=== PATIENT | male | born 1960 | race Caucasian/White ===

== ENCOUNTER 2016-03-24 21:21 | Emergency (ER) | payer OTHER ==
[~2016-03-24 21:21] MED LIST: Iopamidol 370 76% 100 ML VIAL ONE
[2016-03-24] MEDS ORDERED: Sodium Chloride 0.9% 1,000 ML ONE (21:31)
[2016-03-24 22:09] LABS: ALT (SGPT) 47 U/L (0-55); AST (SGOT) 78 U/L (5-34); Alkaline Phosphatase 58 U/L (40-150); Anion Gap 19 mmol/L (10-20); BUN (Urea Nitrogen) 6 mg/dL (8.4-25.7); Bilirubin, Total 0.3 mg/dL (0.2-1.2); Calc. Creatinine Clearance 0 mL/min (70-130); Calcium 8.5 mg/dL (7.8-10.44); Carbon Dioxide 19 mmol/L (22-29); Chloride 102 mmol/L (98-107); Estimated GFR-MDRD 81; Globulin 2.8 g/dL (2.4-3.5); Protein, Total 6.7 g/dL (6.0-8.3)
[2016-03-24 22:15] LABS: #Basophils 0.1 thou/uL (0.0-0.2); #Eosinphils 0.2 thou/uL (0.0-0.7); #Lymphocytes 1.2 thou/uL (1.20-3.40); #Monocytes 0.7 thou/uL (0.11-0.59); #Neutrophils 6.8 thou/uL (1.40-6.50); %Basophils 0.9 % (0.0-1.0); %Eosinophils 2.6 % (0.0-10.0); %Lymphocytes 13.6 % (21.0-51.0); %Monocytes 7.5 % (0.0-10.0); Hematocrit 43.2 % (42.0-52.0); Macrocytosis SLIGHT = 6-15 cells (100X) (0-5/hpf); Mean Platelet Volume 7.6 fL (7.4-10.4); Red Blood Cell (RBC) Count 4.03 mill/uL (4.70-6.10)
[2016-03-24] MEDS ORDERED: Lidocaine 1% w/Epinephrine 1:100K 20 ML VIAL ONE (22:58)
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
[2016-03-24] MEDS ORDERED: Bacitracin Zinc 1 Packet ONE (23:33)
--- NOTE | 2016-03-24 23:35 | CT ---
CT CERVICAL SPINE: Date: 03-24-16 Comparison: None History: Fall, pain. Technique: Serial axial CT imaging at 2.5 mm intervals from the skull base through the lung apices without contrast. Coronal and sagittal reformatted imaging obtained. FINDINGS: The C1 ring is intact. The craniocervical junction and atlantoaxial interspace demonstrate no acute findings. The cervicothoracic junction appears intact as well. No significant anterolisthesis or retrolisthesis seen. There are degenerative change at the atlanto axial interspace. There is left sided facet hypertroph y and C7-T1. There is right side facet hypertrophy at multiple levels, most prominent at C7-T1. T here is an old fracture of the C6 spinus process. No prevertebral soft tissue swelling. Occipital condyles, dens, and C1-2 articulation appear normal. No displaced fracture or evidence of disc location is seen. IMPRESSION: Cervical spine degenerative change. No acute fracture or dislocation noted. POS: [facility]
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
--- NOTE | 2016-03-25 00:42 | PICIS ---
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 dislocation. No radiopaque foreign body. IMPRESSION: Prominent soft tissue injury involving the medial base of the hand and the soft tissues medial to th e wrist. No displaced fracture or dislocation is seen. Bandaging material in this region slightly limits detailed assessment. POS: [facility] . (FriMar 25, 2016 00:15 JROB) LABORATORY: Alcohol Collection DT: Mahomet Mar 24, 2016 21:53, Alcohol 288 mg/dL, Range (Less than 10), The pharmacological response to blood alcohol levels may vary from, individual to individual. Negative: Less than 10, mg/dL Toxic: 50 - 100 mg/dL , Depression of SOFTWARE RECRUITER: Greater than 100 mg/dL , Fatalities reported: Greater than 400 mg/dL . (22:12 JROB) Comprehensive Metabolic Panel Collection DT: Mahomet Mar 24, 2016 21:53, Sodium 136 mmol/L, Range (136-145), Potassium 3.9 mmol/L, Range (3.5-5.1), Chloride 102 mmol/L, Range (98-107), *Carbon Dioxide 19 - L mmol/L, Range (22-29), Anion Gap 19 mmol/L, Range (10-20), *BUN (Urea Nitrogen) 6 - L mg/dL, Range (8.4-25.7), Creatinine 0.96 mg/dL, Range (0.7-1.3), Estimated GFR-MDRD 81 , Reference Range for Estimated GFR: Greater than 90, mL/min/1.73 m2 &a-1R&a+25V*p+0X*n5742C*c202B*c15G*c2P*p-0X&a-25V&a+1R Name: Karely Beckford : 1960 M56 MedRec: [id number] AcctNum: [id number] Prepared: FriMar 25, 2016 00:44 by Interface Page 11 of 12 pMD [facility] EMERGENCY RECORD NOTE: The MDRD equation has not been validated for use, with the elderly (over 70 years of age), women, patients with, serious comorbid condition or persons with extremes of body size, muscle, mass, or nutritional status. , *Glucose 141 - H mg/dL, Range (70-105), Calcium 8.5 mg/dL, Range (7.8-10.44), Bilirubin, Total 0.3 mg/dL, Range (0.2-1.2), Protein, Total 6.7 g/dL, Range (6.0-8.3), NOTE: Plasma values are generally 0.3 to 0.5 g/dL higher than serum values, due to the presence of fibrinogen. , Albumin 3.9 g/dL, Range (3.5-5.0), Globulin 2.8 g/dL, Range (2.4-3.5), Alb/Glob Ratio 1.4 g/dL, Range (1.2-2.2), Alkaline Phosphatase 58 U/L, Range (40-150), *AST (SGOT) 78 - H U/L, Range (5-34), ALT (SGPT) 47 U/L, Range (0-55). (22:12 JROB) CBC with Differential Collection DT: Amanda Mar 24, 2016 21:53, White Blood Cell (WBC) Count 9.0 thou/uL, Range (4.8-10.8), *Red Blood Cell (RBC) Count 4.03 - L mill/uL, Range (4.70-6.10), Hemoglobin 14.4 g/dL, Range (14.0-18.0), Hematocrit 43.2 %, Range (42.0-52.0), *Mean Corpuscular Volume 107.0 - H fl, Range (80.0-94.0), *Mean Corpuscular Hemoglobin 35.7 - H pg, Range (27.0-31.0), Mean Corpuscular HGB CONC 33.3 g/dL, Range (32.0-36.0), *RBC Distribution Width 11.4 - L %, Range (11.5-14.5), Platelet Count 166 thou/uL, Range (130-400), Mean Platelet Volume 7.6 fL, Range (7.4-10.4), *%Neutrophils 75.4 - H %, Range (42.0-75.0), *%Lymphocytes 13.6 - L %, Range (21.0-51.0), %Monocytes 7.5 %, Range (0.0-10.0), %Eosinophils 2.6 %, Range (0.0-10.0), %Basophils 0.9 %, Range (0.0-1.0), *#Neutrophils 6.8 - H thou/uL, Range (1.40-6.50), #Lymphocytes 1.2 thou/uL, Range (1.20-3.40), *#Monocytes 0.7 - H thou/uL, Range (0.11-0.59), #Eosinphils 0.2 thou/uL, Range (0.0-0.7), #Basophils 0.1 thou/uL, Range (0.0-0.2), Macrocytosis SLIGHT = 6-15 cells (100X), Range (0-5/hpf), PLT Morphology Comment Appears Adequate . (22:27 JROB) Leong: LUANN=NANNETTE Guaman, Nivia JROB=MD Lion, Reese ALBRIGHT=NANNETTE Patel, Maryjo &a-1R&a+25V*p+0X*f6118E*c202B*c15G*c2P*p-0X&a-25V&a+1R Name: Karely Beckford : 1960 M56 MedRec: [id number] AcctNum: [id number] Prepared: FriMar 25, 2016 00:44 by Interface Page 12 of 12 pMJeff MCCARTNEY
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
== END 2016-03-25 00:22 | disposition home or self-care (01) ==
LOC: NAV ERS 21:21
DX: S22.41XA Multiple fractures of ribs, right side, initial encounter for closed fracture (principal); S61.411A Laceration without foreign body of right hand, initial encounter; F10.129 Alcohol abuse with intoxication, unspecified; F31.9 Bipolar disorder, unspecified; F17.210 Nicotine dependence, cigarettes, uncomplicated; Z89.611 Acquired absence of right leg above knee; Z79.899 Other long term (current) drug therapy; W22.8XXA Striking against or struck by other objects, initial encounter
CPT/HCPCS: 12004; 70450; 71260; 72125; 74177; 80053; 80307; 85025; 96360; 96361; G0479; J2001; J7050

== ENCOUNTER 2016-04-02 13:29 | Emergency (ER) | payer OTHER ==
--- NOTE | 2016-04-02 14:45 | ERRECORD ---
[facility] EMERGENCY RECORD HPI WOUND CHECK (14:11 MPUR) CHIEF COMPLAINT: Patient presents for evaluation of hand wound, laceration, closed with sutures, Wound is 10 days old. HISTORIAN: History provided by patient, fell New Years osorio, broke ribs, lac rt hand. smokes 1/2 PPD. here for suture removal. Needs some more pain meds. LOCATION: Symptoms are localized, most severe to rt ribs. TIME COURSE: Symptoms are improving, minimally. ASSOCIATED WITH: No associated symptoms. EXACERBATED BY: Patient's condition exacerbated by nothing. RELIEVED BY: Patient's condition relieved by nothing. ROS (14:13 MPUR) CONSTITUTIONAL: Historian denies fever. EYES: Historian denies eye pain. ENT: Historian denies rhinorrhea. CARDIOVASCULAR: Chest wall pain. RESPIRATORY: cough with chest wall pain. GI: Historian denies diarrhea, Historian denies vomiting. GENITOURINARY MALE: Historian denies dysuria. MUSCULOSKELETAL: Historian denies arthralgias. SKIN: Historian denies rash. See HPI. NEUROLOGIC: Historian denies seizures. ENDOCRINE: Historian denies skin changes. HEMO/LYMPHATIC: Historian denies easy bruising. PAST MEDICAL HISTORY (14:04 JPAR) MEDICAL HISTORY: Flu vaccine not up to date, Tetanus immunization up to date, Date of immunization: 2015, No past medical history of diabetes, Past medical history includes gastrointestinal disease, Hepatitis C, No past medical history of hyperlipidemia, No past medical history of hypertension, Past medical history includes skin history, psoriasis. MALE SURGICAL HISTORY: Surgical history of amputation to, right lower extremity, Notes: Half of 2-4 digits, Surgical history of hernia repair, Date of surgery 2013. PSYCHIATRIC HISTORY: Psychiatric history includes, anxiety, bipolar disorder, depression. SOCIAL HISTORY: Patient drinks every day, less than 5 drinks per day, Patient is a former drug user, abused marijuana, Patient currently uses tobacco, smokes cigarettes, daily, Patient has smoked for 30 years, Patient smokes 1 pack per day, Lives at home, alone, Patient has pets. KNOWN ALLERGIES Penicillins: Source: Parent CURRENT MEDICATIONS (14:01 JPAR) &a-1R&a+25V*p+0X*f9366M*c202B*c15G*c2P*p-0X&a-25V&a+1R Name: Karely Beckford : 1960 M56 MedRec: [id number] AcctNum: [id number] Prepared: FriApr 03, 2016 01:14 by Interface Page 1 of 3 pMD [facility] EMERGENCY RECORD Valium: TABLET : Strength - 2 mg : ORAL Patient Dose: unknown Oral 2 times a day. acetaminophen-codeine: TABLET : Strength - 300 mg-30 mg : ORAL Patient Dose: 1 tab(s) Oral every 6 hours PRN. VITAL SIGNS (13:56 JPAR) VITAL SIGNS: BP: 122/86, Pulse: 108, Resp: 16, Temp: 98.7 (Oral), Pain: 6, O2 sat: 98 on Room Air, Time: 04/02/2016 13:56. PHYSICAL EXAM CONSTITUTIONAL: Vital signs reviewed, Patient appears non toxic. (14:13 MPUR) HEAD: Head exam included findings of head atraumatic, normocephalic. (14:13 MPUR) EYES: Eye exam included findings of eyelids normal to inspection, Conjunctiva normal, Sclera normal. (14:13 MPUR) ENT: Nose exam normal, no nasal deformity, mucous membranes moist. (14:13 MPUR) NECK: Neck exam included findings of normal range of motion, no ecchymosis. (14:13 MPUR) RESPIRATORY CHEST: Breath sounds clear, Respiratory exam included findings of no respiratory distress, NL Respiratory rate and no increased work of breathing. (14:13 MPUR) UPPER EXTREMITY: healing laceration on rt wrist. sutures removed. (14:15 MPUR) LOWER EXTREMITY: Lower extremity exam included findings of inspection normal, no cyanosis. (14:13 MPUR) NEURO: Speech normal, alert. (14:13 MPUR) SKIN: dry, and normal in color, no rash. (14:13 MPUR) PSYCHIATRIC: Normal affect, Recent memory normal. (14:13 MPUR) DOCTOR NOTES (14:13 MPUR) TEXT: I have reviewed and agree with nurse's past medical, family, and social history as documented on chart. Pt's vital signs have been reviewed. PROBLEM LIST No recorded problems DIAGNOSIS (14:16 MPUR) FINAL: PRIMARY: ENCOUNTER FOR REMOVAL OF SUTURES, ADDITIONAL: med refill. PRESCRIPTION (14:17 MPUR) acetaminophen-codeine: TABLET : 300 mg-30 mg : ORAL : Quantity: 1 Unit: tab(s) Route: ORAL Schedule: every 12 hours Dispense: 14 Unit: tab(s) &a-1R&a+25V*p+0X*l1630W*c202B*c15G*c2P*p-0X&a-25V&a+1R Name: Karely Beckford : 1960 M56 MedRec: [id number] AcctNum: [id number] Prepared: FriApr 03, 2016 01:14 by Interface Page 2 of 3 pMD [facility] EMERGENCY RECORD May substitute. Refills: No Refills . NOTES: as needed for pain. No Refills. DISPOSITION PATIENT: Disposition Type: Discharge, Disposition: *Discharge Home. (14:16 ELLIOTT) Patient left the department. (14:41 NATI) Leong: NATI=NANNETTE Vallejo, Yayo MPUR=MD Vickie, Ronald &a-1R&a+25V*p+0X*f7506O*c202B*c15G*c2P*p-0X&a-25V&a+1R Name: Karely Beckford : 1960 M56 MedRec: [id number] AcctNum: [id number] Prepared: FriApr 03, 2016 01:14 by Interface Page 3 of 3 pMD MTDD
--- NOTE | 2016-04-02 14:51 | PICIS ---
[facility] EMERGENCY RECORD TRIAGE (14:00 JPAR) TRIAGE NOTES: SUTURE REMOVAL r HAND. (14:00 JPAR) PATIENT: NAME: Karely Beckford, AGE: 56, GENDER: male, : Fri1960, TIME OF GREET: FriApr 02, 2016 13:29, PREFERRED LANGUAGE: Polish, ETHNICITY: Not or , ECODE BILLING MAP: [facility], SSN: [id number], Zip Code: [address], KG WEIGHT: 83.91, PHONE: , , , PERSON ID: [id number], PCP: [facility]. (14:00 JPAR) COMPLAINT: RIGHT HAND SUTURE REMOVAL,RIGHT SIDE PAIN. (14:00 JPAR) ADMISSION: URGENCY: 4 Non Urgent, ADMISSION SOURCE: Home, TRANSPORT: CAR, BED: TRIAGE. (14:00 JPAR) ASSESSMENT: Assessment: SUTURE REMOVAL r SIDE PAIN POST NEW YEARS OSORIO, Symptoms began 9 DAYS, Symptoms began greater than 1 week ago. (14:04 JPAR) SIRS SCORING: Heart Rate 110-139 (2), Temp range 96.8-101.1 (0), respiratory rate 12-24 (0), Mental Status altered: no (0), Infection or Suspected Infection: No. (14:04 JPAR) TRIAGE SCREENING: Patient denies suicidal ideation, Patient denies presence of domestic violence. (14:04 JPAR) PROVIDERS: TRIAGE NURSE: Yayo Vallejo RN. (14:00 JPAR) VITAL SIGNS: BP 122/86, Pulse 108, Resp 16, Temp 98.7, (Oral), Pain 6, O2 Sat 98, on Room Air, Time 04/02/2016 13:56. (13:56 JPAR) PREVIOUS VISIT ALLERGIES: Penicillins. (14:00 JPAR) Penicillins. (14:04 JPAR) KNOWN ALLERGIES Penicillins: Source: Parent CURRENT MEDICATIONS (14:01 JPAR) Valium: TABLET : Strength - 2 mg : ORAL Patient Dose: unknown Oral 2 times a day. acetaminophen-codeine: TABLET : Strength - 300 mg-30 mg : ORAL Patient Dose: 1 tab(s) Oral every 6 hours PRN. VITAL SIGNS (13:56 JPAR) VITAL SIGNS: BP: 122/86, Pulse: 108, Resp: 16, Temp: 98.7 (Oral), Pain: 6, O2 sat: 98 on Room Air, Time: 04/02/2016 13:56. NURSING ASSESSMENT: SKIN (14:00 JPAR) CONSTITUTIONAL: Patient arrives ambulatory, Gait steady, History obtained from patient, Patient appears comfortable, Patient cooperative, Patient alert, Oriented to person, place and time, Skin warm, Skin dry, Skin normal in color, Mucous membranes pink, Mucous membranes moist, Patient complains of Suture removal Right hand. PAIN: aching pain. SKIN: Skin assessment findings include skin warm, Skin dry, Skin &a-1R&a+25V*p+0X*l0662O*c202B*c15G*c2P*p-0X&a-25V&a+1R Name: Karely Beckford : 1960 M56 MedRec: [id number] AcctNum: [id number] Prepared: FriApr 03, 2016 01:20 by Interface Page 1 of 4 pMD [facility] EMERGENCY RECORD normal in color, Inspection findings include laceration, to R hand, [address] SAFETY: Side rails up, Cart/Stretcher in lowest position, Family at bedside, Call light within reach, Hospital ID band on. NURSING PROCEDURE: DISCHARGE NOTE (14:27 EPIE) DISCHARGE: Patient discharged to home, ambulating without assistance, friend driving, accompanied by friend, Summary of Care printed/ provided, Discharge instructions given to patient, Simple or moderate discharge teaching performed, by YAYO BRUNSON, Prescriptions given and instructions on side effects given, Name of prescription(s) given: TYLENOL-CODEINE, Above person(s) verbalized understanding of discharge instructions and follow-up care. BELONGINGS: Belongings and valuables with patient upon arrival to the Emergency Department include:, Belongings and valuables with patient at time of discharge include:, Belongings remain with patient, Valuables remain with patient. NURSING PROCEDURE: SUTURE/STAPLE REMOVAL (14:25 JPAR) PATIENT IDENTIFIER: Patient actively involved in identification process, Patient's identity verified by patient stating name, Patient's identity verified by patient stating date, Patient's identity verified by hospital ID miller, Patient's identity verified by family member. SUTURE/STAPLE REMOVAL: Suture or staple removal indicated for healed wound, Sutures removed. FOLLOW-UP: Suture(s) removed without difficulty. SAFETY: Side rails up, Cart/Stretcher in lowest position, Family at bedside, Call light within reach, Hospital ID band on. HPI WOUND CHECK (14:11 MPUR) CHIEF COMPLAINT: Patient presents for evaluation of hand wound, laceration, closed with sutures, Wound is 10 days old. HISTORIAN: History provided by patient, fell New Years osorio, broke ribs, lac rt hand. smokes 1/2 PPD. here for suture removal. Needs some more pain meds. LOCATION: Symptoms are localized, most severe to rt ribs. TIME COURSE: Symptoms are improving, minimally. ASSOCIATED WITH: No associated symptoms. EXACERBATED BY: Patient's condition exacerbated by nothing. RELIEVED BY: Patient's condition relieved by nothing. ROS (14:13 MPUR) CONSTITUTIONAL: Historian denies fever. EYES: Historian denies eye pain. ENT: Historian denies rhinorrhea. CARDIOVASCULAR: Chest wall pain. RESPIRATORY: cough with chest wall pain. GI: Historian denies diarrhea, Historian denies &a-1R&a+25V*p+0X*r5045K*c202B*c15G*c2P*p-0X&a-25V&a+1R Name: Karely Beckford : 1960 M56 MedRec: [id number] AcctNum: [id number] Prepared: FriApr 03, 2016 01:20 by Interface Page 2 of 4 pMD [facility] EMERGENCY RECORD vomiting. GENITOURINARY MALE: Historian denies dysuria. MUSCULOSKELETAL: Historian denies arthralgias. SKIN: Historian denies rash. See HPI. NEUROLOGIC: Historian denies seizures. ENDOCRINE: Historian denies skin changes. HEMO/LYMPHATIC: Historian denies easy bruising. PAST MEDICAL HISTORY (14:04 JPAR) MEDICAL HISTORY: Flu vaccine not up to date, Tetanus immunization up to date, Date of immunization: 2015, No past medical history of diabetes, Past medical history includes gastrointestinal disease, Hepatitis C, No past medical history of hyperlipidemia, No past medical history of hypertension, Past medical history includes skin history, psoriasis. MALE SURGICAL HISTORY: Surgical history of amputation to, right lower extremity, Notes: Half of 2-4 digits, Surgical history of hernia repair, Date of surgery 2013. PSYCHIATRIC HISTORY: Psychiatric history includes, anxiety, bipolar disorder, depression. SOCIAL HISTORY: Patient drinks every day, less than 5 drinks per day, Patient is a former drug user, abused marijuana, Patient currently uses tobacco, smokes cigarettes, daily, Patient has smoked for 30 years, Patient smokes 1 pack per day, Lives at home, alone, Patient has pets. PHYSICAL EXAM CONSTITUTIONAL: Vital signs reviewed, Patient appears non toxic. (14:13 MPUR) HEAD: Head exam included findings of head atraumatic, normocephalic. (14:13 MPUR) EYES: Eye exam included findings of eyelids normal to inspection, Conjunctiva normal, Sclera normal. (14:13 MPUR) ENT: Nose exam normal, no nasal deformity, mucous membranes moist. (14:13 MPUR) NECK: Neck exam included findings of normal range of motion, no ecchymosis. (14:13 MPUR) RESPIRATORY CHEST: Breath sounds clear, Respiratory exam included findings of no respiratory distress, NL Respiratory rate and no increased work of breathing. (14:13 MPUR) UPPER EXTREMITY: healing laceration on rt wrist. sutures removed. (14:15 MPUR) LOWER EXTREMITY: Lower extremity exam included findings of inspection normal, no cyanosis. (14:13 MPUR) NEURO: Speech normal, alert. (14:13 MPUR) SKIN: dry, and normal in color, no rash. (14:13 MPUR) PSYCHIATRIC: Normal affect, Recent memory normal. (14:13 MPUR) EVENTS &a-1R&a+25V*p+0X*z2976Q*c202B*c15G*c2P*p-0X&a-25V&a+1R Name: Karely Beckford : 1960 M56 MedRec: [id number] AcctNum: [id number] Prepared: FriApr 03, 2016 01:20 by Interface Page 3 of 4 D [facility] EMERGENCY RECORD TRANSFER: Triage to Emergency Triage. (FriApr 02, 2016 14:00 JPAR) Removed from Emergency Triage. (14:41 JPAR) DOCTOR NOTES (14:13 MPUR) TEXT: I have reviewed and agree with nurse's past medical, family, and social history as documented on chart. Pt's vital signs have been reviewed. PROBLEM LIST No recorded problems DIAGNOSIS (14:16 MPUR) FINAL: PRIMARY: ENCOUNTER FOR REMOVAL OF SUTURES, ADDITIONAL: med refill. DISPOSITION PATIENT: Disposition Type: Discharge, Disposition: *Discharge Home. (14:16 MPUR) Patient left the department. (14:41 JPAR) INSTRUCTION (14:18 MPUR) DISCHARGE: SUTURE REMOVAL, NO COMPLICATION, SMOKING CESSATION. FOLLOWUP: [facility], [address] [place] [address] , . SPECIAL: apply antibiotic ointment twice a day Follow-up with your primary physician as needed. PRESCRIPTION (14:17 MPUR) acetaminophen-codeine: TABLET : 300 mg-30 mg : ORAL : Quantity: 1 Unit: tab(s) Route: ORAL Schedule: every 12 hours Dispense: 14 Unit: tab(s) May substitute. Refills: No Refills . NOTES: as needed for pain. No Refills. IMAGING (14:28 JPAR) *SUPPLY CHARGE SHEET: Image captured from scanner. *DISCHARGE INSTRUCTIONS RECEIPT: Image captured from scanner. ADMIN (FriApr 03, 2016 01:10 MPUR) DIGITAL SIGNATURE: MD Johnston Marcus. Leogn: EPIE=NANNETTE Guaman, Nivia JPAR=NANNETTE Vallejo Jason MPUR=MD Johnston Marcus &a-1R&a+25V*p+0X*t7249G*c202B*c15G*c2P*p-0X&a-25V&a+1R Name: Karely Beckford : 1960 M56 MedRec: [id number] AcctNum: [id number] Prepared: FriApr 03, 2016 01:20 by Interface Page 4 of 4 pMD MTDD
== END 2016-04-02 14:27 | disposition home or self-care (01) ==
LOC: NAV ERS 13:29
DX: S61.511D Laceration without foreign body of right wrist, subsequent encounter (principal); F17.210 Nicotine dependence, cigarettes, uncomplicated; F31.9 Bipolar disorder, unspecified; F41.9 Anxiety disorder, unspecified; X58.XXXD Exposure to other specified factors, subsequent encounter
CPT/HCPCS: 99281

== ENCOUNTER 2016-05-27 10:35 | Emergency (ER) | payer OTHER ==
[2016-05-27] MEDS ORDERED: HYDROcodone/Acetaminophen 10/325 mg Tablet ONE (11:39)
[2016-05-27] MEDS ORDERED: Adacel (T-DAP) 0.5 ML VIAL ONE (11:39)
--- NOTE | 2016-05-27 12:29 | CT ---
CT CERVICAL SPINE WITH CORONAL AND SAGITTAL REFORMATIONS: Date: 05/27/16 HISTORY: Fall, neck pain. FINDINGS: Comparison made with exam of 03/24/16. Degenerative changes are again seen. There is an old fracture of the C6 spinous process. There is significant motion artifact which makes evaluating the C2 vertebra and its alignment diffic ult. Remainder of the cervical spine demonstrates no evidence of fracture or subluxation. Recommend repeating the exam with limited evaluation of the upper cervical spine to better evaluate the C2 vertebra. POS: ANGIE
--- NOTE | 2016-05-27 13:07 | RAD ---
RIGHT SHOULDER THREE VIEWS HISTORY: Fall. Right shoulder pain. FINDINGS: There are degenerative changes in the acromioclavicular joint. No acute fracture or dislocation is seen. POS: [facility]
--- NOTE | 2016-05-27 14:19 | CT ---
CT BRAIN WITHOUT CONTRAST: Date: 05/27/16 HISTORY: Fall, headache. FINDINGS: Comparison made with exam of 03/24/16. No evidence of acute infarct, hemorrhage, midline shift, or abnormal extra-axial fluid collections a re seen. The ventricular size is stable and the basilar cisterns are patent. The bony calvarium is i ntact. There is mucosal disease in the paranasal sinuses. IMPRESSION: No CT evidence of acute intracranial process. POS: [facility]
--- NOTE | 2016-05-27 14:29 | RAD ---
SEMI-UPRIGHT PORTABLE CHEST ONE VIEW HISTORY: A 56-year-old male with a cough and chest pain after a fall, with a history of a prior rib fracture. FINDINGS: A semi-upright portable chest demonstrates atherosclerosis and old granulomatous disease. There luis ear to be multiple healed right rib fractures since 10/28/2006. There is mild linear stranding in t he left base, nonspecific. This could represent some minimal or early pneumonitis, or may just repr esent some scarring developing in the interim, since the prior study. IMPRESSION: 1. Minimal parenchymal changes in the left lower lobe, new from a 03/24/[address] scan, raising concern for minimal left lower lobe pneumonia or pneumonitis. Treatment for pneumonia and follow-u p examination over several weeks should be considered to document clearing or stability. 2. Healed or healing right rib fractures. 3. No pneumothorax or pleural effusion. 4. Treatment for pneumonia should probably be considered, and a follow-up study, after several week s, suggested, to document clearing. POS: ANGIE
== END 2016-05-27 14:02 | disposition home or self-care (01) ==
LOC: NAV ERS 10:35
DX: S43.401A Unspecified sprain of right shoulder joint, initial encounter (principal); S13.4XXA Sprain of ligaments of cervical spine, initial encounter; S00.81XA Abrasion of other part of head, initial encounter; I10 Essential (primary) hypertension; E78.5 Hyperlipidemia, unspecified; F31.9 Bipolar disorder, unspecified; F41.9 Anxiety disorder, unspecified; F17.210 Nicotine dependence, cigarettes, uncomplicated; W18.30XA Fall on same level, unspecified, initial encounter
CPT/HCPCS: 70450; 71010; 72125; 90471; 90715

== ENCOUNTER 2016-11-03 16:43 | Emergency (ER) | payer OTHER ==
[2016-11-03] MEDS ORDERED: Sodium Chloride 0.9% 1,000 ML ONE (17:02)
[2016-11-03] MEDS ORDERED: Ondansetron HCl/PF 4 MG/2 ML Vial ONE (17:03)
[2016-11-03 17:28] LABS: INR-International Normal Ratio 0.9; Prothrombin Time 12.4 SEC (12.0-14.7)
[2016-11-03 17:36] LABS: ALT (SGPT) 49 U/L (8-55); AST (SGOT) 77 U/L (5-34); Albumin 4.1 g/dL (3.5-5.0); Alcohol 235 mg/dL (Less than 10); Alkaline Phosphatase 66 U/L (40-150); Anion Gap 19 mmol/L (10-20); BUN (Urea Nitrogen) Less than 4 mg/dL (8.4-25.7); Bilirubin, Total 0.6 mg/dL (0.2-1.2); Calc. Creatinine Clearance 0 mL/min (70-130); Carbon Dioxide 22 mmol/L (22-29); Chloride 96 mmol/L (98-107); Estimated GFR-MDRD Greater than 90; Glucose 101 mg/dL (70-105); Potassium 3.6 mmol/L (3.5-5.1); Protein, Total 7.1 g/dL (6.0-8.3); Sodium 133 mmol/L (136-145)
[2016-11-03 17:48] LABS: #Basophils 0.1 thou/uL (0.0-0.2); #Eosinphils 0.1 thou/uL (0.0-0.7); #Monocytes 0.6 thou/uL (0.11-0.59); #Neutrophils 5.8 thou/uL (1.40-6.50); %Basophils 0.7 % (0.0-1.0); %Eosinophils 0.7 % (0.0-10.0); %Lymphocytes 12.3 % (21.0-51.0); %Monocytes 7.6 % (0.0-10.0); %Neutrophils 78.6 % (42.0-75.0); Hemoglobin 15.3 g/dL (14.0-18.0); MDiff Complete? YES; Macrocytosis SLIGHT = 6-15 cells (100X) (0-5/hpf); Mean Corpuscular HGB CONC 33.9 g/dL (32.0-36.0); Mean Corpuscular Hemoglobin 35.1 pg (27.0-31.0); Mean Platelet Volume 7.2 fL (7.4-10.4); PLT Morphology Comment Appears Decreased; Platelet Count 109 thou/uL (130-400); RBC Distribution Width 11.3 % (11.5-14.5); Red Blood Cell (RBC) Count 4.36 mill/uL (4.70-6.10); White Blood Cell (WBC) Count 7.4 thou/uL (4.8-10.8)
--- NOTE | 2016-11-03 18:09 | RAD ---
CHEST TWO VIEWS: History: Difficulty swallowing food. Comparison: 05-27-16 FINDINGS: Lungs are hyperinflated. Right midlung calcified granuloma. No pneumothorax or large effusion. IMPRESSION: Lung hyperinflation suggests obstructive pulmonary disease. No acute cardiopulmonary process. POS: [facility]
== END 2016-11-03 19:07 | disposition short-term general hospital (02) ==
LOC: NAV ERS 16:43
DX: T18.128A Food in esophagus causing other injury, initial encounter (principal); E78.5 Hyperlipidemia, unspecified; I10 Essential (primary) hypertension; F41.9 Anxiety disorder, unspecified; F32.9 Major depressive disorder, single episode, unspecified; F17.210 Nicotine dependence, cigarettes, uncomplicated
CPT/HCPCS: 71020; 80053; 80307; 85025; 85610; 93005; 96361; 96374; 96375; J1610; J2405; J7050

== ENCOUNTER 2017-06-20 23:07 | Emergency (ER) | payer OTHER ==
[2017-06-20 23:53] LABS: Phencyclidine (PCP) Not Detected (NotDetected); THC/Cannabinoid Screen Not Detected (NotDetected)
[2017-06-20 23:54] LABS: Amphetamine Not Detected (NotDetected); Barbiturates Screen Not Detected (NotDetected); Benzodiazepine Screen Detected (NotDetected); Cocaine Metabolite Screen Not Detected (NotDetected); Medtox Control Line Valid? VALID (VALID); Methadone Not Detected (NotDetected); Methamphetamine Not Detected (NotDetected); Opiate Screen Not Detected (NotDetected); Oxycodone Screen Not Detected (NotDetected); Tricyclic Screen Not Detected (NotDetected)
--- NOTE | 2017-06-20 23:57 | RAD ---
THREE VIEWS OF THE RIGHT SHOULDER: 06/20/17 INDICATION: Right shoulder pain. COMPARISON: Prior exam dated 05/27/16. IMPRESSION: There is stable moderate AC joint osteoarthrosis. There is degenerative subchondral cyst-like abnorma lities involving the right greater tuberosity. The visualized right lung is clear. No acute fracture or subluxation is evident. IMPRESSION: No acute osseous abnormality. POS: [facility]
== END 2017-06-21 00:12 | disposition home or self-care (01) ==
LOC: NAV ERS 23:07
DX: M25.511 Pain in right shoulder (principal); F10.129 Alcohol abuse with intoxication, unspecified; E78.5 Hyperlipidemia, unspecified; I10 Essential (primary) hypertension; L40.9 Psoriasis, unspecified; F41.9 Anxiety disorder, unspecified; F31.9 Bipolar disorder, unspecified; F17.210 Nicotine dependence, cigarettes, uncomplicated
CPT/HCPCS: 36415; 80306; 80307

== ENCOUNTER 2018-03-14 10:01 | Emergency (ER) | payer OTHER ==
[2018-03-14] MEDS ORDERED: Acetaminophen/Codeine 30-300mg Tablet ONE (10:47)
--- NOTE | 2018-03-14 11:55 | RAD ---
2 VIEWS LEFT HIP: Date: 03/14/18 COMPARISON: None. HISTORY: Pain. FINDINGS: There is moderate superior joint space narrowing involving the left hip with significant subchondral sclerosis and osteophyte formation of the left acetabular roof. There is no displaced fracture or dis location seen. IMPRESSION: Prominent degenerative joint disease of the left hip with no associated fracture or dislocation. POS: [facility]
--- NOTE | 2018-03-14 12:41 | RAD ---
4 VIEWS LEFT KNEE: Date: 03/14/18 COMPARISON: None. HISTORY: Left knee pain, no history of trauma. FINDINGS: Mild/moderate medial compartment narrowing and mild lateral compartment narrowing noted. Mild patellofemoral joint space narrowing. No knee joint effusion. No displaced fracture or evidence of dislocation. IMPRESSION: No acute osseous abnormality. POS: [facility]
== END 2018-03-14 12:58 | disposition home or self-care (01) ==
LOC: NAV ERS 10:01
DX: S73.102A Unspecified sprain of left hip, initial encounter (principal); S86.812A Strain of other muscle(s) and tendon(s) at lower leg level, left leg, initial encounter; J44.9 Chronic obstructive pulmonary disease, unspecified; F41.9 Anxiety disorder, unspecified; F31.9 Bipolar disorder, unspecified; F17.210 Nicotine dependence, cigarettes, uncomplicated; Z79.899 Other long term (current) drug therapy; X58.XXXA Exposure to other specified factors, initial encounter

== ENCOUNTER 2018-04-09 14:11 | Emergency (ER) | payer OTHER ==
[2018-04-09] MEDS ORDERED: Acetaminophen 500 MG TAB ONE (14:34)
[2018-04-09] MEDS ORDERED: Sodium Chloride 0.9% 1,000 ML ONE (14:34)
[2018-04-09 14:54] LABS: #Lymphocytes 0.7 thou/uL (1.20-3.40); #Monocytes 1.1 thou/uL (0.11-0.59); #Neutrophils 7.6 thou/uL (1.40-6.50); %Basophils 0.4 % (0.0-1.0); %Lymphocytes 7.5 % (21.0-51.0); %Monocytes 11.6 % (0.0-10.0); %Neutrophils 80.5 % (42.0-75.0); Differential Comment SCANNED; Hemoglobin 15.5 g/dL (14.0-18.0); Mean Corpuscular HGB CONC 33.4 g/dL (32.0-36.0); Mean Corpuscular Hemoglobin 35.2 pg (27.0-31.0); Mean Platelet Volume 10.6 fL (7.4-10.4); Platelet Count 115 thou/uL (130-400); RBC Distribution Width 11.2 % (11.5-14.5); White Blood Cell (WBC) Count 9.4 thou/uL (4.8-10.8)
--- NOTE | 2018-04-09 14:55 | RAD ---
PORTABLE CHEST: Comparison: 05-27-16 History: Syncope. FINDINGS: Heart size is within normal limits. There is some arthrosclerotic change of the aortic knob. The lung s are clear of any infiltrative process. IMPRESSION: No active intrathoracic disease. POS: [facility]
[2018-04-09 15:00] LABS: Amphetamine Not Detected (NotDetected); Barbiturates Screen Not Detected (NotDetected); Benzodiazepine Screen Detected (NotDetected); Cocaine Metabolite Screen Not Detected (NotDetected); Medtox Control Line Valid? VALID (VALID); Methadone Not Detected (NotDetected); Methamphetamine Not Detected (NotDetected); Opiate Screen Not Detected (NotDetected); Oxycodone Screen Not Detected (NotDetected); Phencyclidine (PCP) Not Detected (NotDetected); THC/Cannabinoid Screen Not Detected (NotDetected); Tricyclic Screen Detected (NotDetected)
[2018-04-09 15:04] LABS: ALT (SGPT) 22 U/L (8-55); AST (SGOT) 28 U/L (5-34); Acetaminophen Less than 6.0 mcg/mL (10.0-30.0); Alcohol Less than 10 mg/dL (Less than 10); Alkaline Phosphatase 78 U/L (40-150); Anion Gap 16 mmol/L (10-20); BUN (Urea Nitrogen) 5 mg/dL (8.4-25.7); Bilirubin, Total 1.2 mg/dL (0.2-1.2); Calc. Creatinine Clearance 0 mL/min (70-130); Calcium 9.9 mg/dL (7.8-10.44); Carbon Dioxide 24 mmol/L (22-29); Chloride 98 mmol/L (98-107); Estimated GFR-MDRD Greater than 90; Globulin 3.4 g/dL (2.4-3.5); Glucose 124 mg/dL (70-105); Potassium 3.6 mmol/L (3.5-5.1); Protein, Total 7.4 g/dL (6.0-8.3); Salicylate Less than 8.0 mg/dL (15.0-30.0); Sodium 134 mmol/L (136-145)
--- NOTE | 2018-04-09 15:06 | RAD ---
LEFT HAND 3 VIEWS: INDICATION: History of left hand injury. COMPARISON: None. 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 There is h ealed deformity involving the small finger proximal phalangeal base. No new acute fracture or sublux ation is evident. IMPRESSION: No acute osseous abnormality. POS: [facility]
--- NOTE | 2018-04-09 15:07 | RAD ---
LEFT WRIST 3 VIEWS: INDICATION: History of left arm pain and swelling. COMPARISON: None. 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 No acute fracture or subluxation is evident. Ther e is soft tissue swelling surrounding the wrist joint. IMPRESSION: No acute osseous abnormality. Soft tissue swelling of the left ribs. POS: [facility]
--- NOTE | 2018-04-09 15:55 | CT ---
CT HEAD NONCONTRAST: History: Altered mental status. Comparison: 05-27-16 FINDINGS: There is no evidence of acute intracranial hemorrhage or infarct. Mild diffuse cortical atrophy and c hronic ischemic small vessel disease appear stable. There is no mass effect or shift of midline struc tures. Post-operative appearance of the right maxillary sinus antrum and maxilla are apparent and sta ble compared to the 2017 exam. IMPRESSION: No acute intracranial abnormalities are demonstrated. POS: [facility]
== END 2018-04-09 15:59 | disposition home or self-care (01) ==
LOC: NAV ERS 14:11
DX: S63.502A Unspecified sprain of left wrist, initial encounter (principal); I10 Essential (primary) hypertension; B19.10 Unspecified viral hepatitis B without hepatic coma; J44.9 Chronic obstructive pulmonary disease, unspecified; F31.9 Bipolar disorder, unspecified; F41.9 Anxiety disorder, unspecified; F17.210 Nicotine dependence, cigarettes, uncomplicated; Z79.899 Other long term (current) drug therapy; Z71.6 Tobacco abuse counseling; Z79.82 Long term (current) use of aspirin; W18.30XA Fall on same level, unspecified, initial encounter
CPT/HCPCS: 36415; 70450; 71045; 80053; 80306; 80307; 84484; 85025; 93005; 94760; 96360; 99406; J7050

== ENCOUNTER 2018-05-25 15:37 | Emergency (ER) | payer OTHER ==
[2018-05-25] MEDS ORDERED: Acetaminophen 325 MG TAB ONE (16:05)
--- NOTE | 2018-05-25 16:57 | RAD ---
LEFT HAND 3 VIEWS: Date: 05/25/18 HISTORY: Trauma. Fall. COMPARISON: 04/09/18. FINDINGS: There is a fracture of the distal pole of the scaphoid. There is also some ossification of the scapho trapezium ligament. Old fifth metacarpal diaphyseal fracture. IMPRESSION: Fracture of the distal pole of the scaphoid, as well as avulsion injury of the scaphotrapezium rolando reinoso. POS: [facility]
--- NOTE | 2018-05-25 17:01 | CT ---
NONCONTRAST CT CERVICAL SPINE: Date: 05/25/18 HISTORY: Trauma. Injury after a fall. COMPARISON: 05/27/16. TECHNIQUE: Contiguous axial CT images are obtained through the cervical spine from the skull base to the T1-2 le essence. Sagittal and coronal reformatted images are provided. 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 There is also a spinous process at C4 with fracture through the spinous process on the left; however, this is corticated suggesting a more remote fracture, but this is an interval change from the study in 2017. There is also probable nonunion small avulsion fracture involving the left side of the spinous process at C2, which is also not appreciated on the prior exam. No acute fracture is appreciated. Scattered degenerative changes are again seen in the cervical spine, overall similar to the prior exam in 2017. The prevertebral soft tissues are within normal limits. Vascular calcifications are again seen in the carotid arteries. Mild emphysematous changes are seen in the visualized lung apices. There is mild sinus disease with mucosal thickening in the right sphenoid sinus and limited visualize d right maxillary antrum. IMPRESSION: 1. No acute fracture or subluxation involving the cervical spine. 2. 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 3. Mild degenerative changes in the cervical spine. POS: [facility]
== END 2018-05-25 17:39 | disposition home or self-care (01) ==
LOC: NAV ERS 15:37
DX: S62.012A Displaced fracture of distal pole of navicular [scaphoid] bone of left wrist, initial encounter for closed fracture (principal); I10 Essential (primary) hypertension; J44.9 Chronic obstructive pulmonary disease, unspecified; F17.210 Nicotine dependence, cigarettes, uncomplicated; Z79.899 Other long term (current) drug therapy; W10.9XXA Fall (on) (from) unspecified stairs and steps, initial encounter
CPT/HCPCS: 29125; 72125